=== PATIENT | female | born 1945 | race Caucasian/White ===

== ENCOUNTER 2017-04-14 16:03 | Emergency (ER) | payer MEDICARE ==
[2017-04-14 16:39] LABS: BASO % 0.5 % (0-6); EOS % 5.6 % (0-6); GRAN % 54.4 % (47-80); HEMATOCRIT 40.8 % (35.0-47.0); HEMOGLOBIN 13.8 gm/dl (11.6-16.0); LYMPH % 32.2 % (16-45); MEAN CELL VOLUME 90.7 fl (81-97); MEAN CORPUSCULAR HEMOGLOBIN 30.7 pg (27-33); MEAN CORPUSCULAR HGB CONC 33.8 g/dl (32-36); MEAN PLATELET VOLUME 10.2 fl (7.4-10.4); MONO % 7.3 % (0-9); PLATELET COUNT 215 K/uL (130-400); RED CELL DISTRIBUTION WIDTH 12.9 % (11.5-14.5); WHITE BLOOD COUNT W/O DIFF 6.3 K/uL (4.2-12.2)
[2017-04-14 16:53] LABS: BLOOD UREA NITROGEN 14 mg/dL (8-23); CREATININE 0.8 mg/dL (0.5-0.9); EST GLOMERULAR FILTRATION RATE > 60 mL/min
[2017-04-14 16:56] LABS: GLUCOSE,RANDOM 133 mg/dL (74-109)
--- NOTE | 2017-04-14 18:23 | Emergency Department Record ---
History of Present Illness - General Chief complaint: Extremity Problem Stated complaint: TINGLING IN ARM Time Seen by Provider: 04/14/17 17:19 Source: Patient Mode of Arrival: Ambulatory Limitations: No limitations - History of Present Illness Initial comments: pt brought over from [facility] for tingling in her l arm and first 3 fingers with some discomfort in her neck MD Complaint: Extremity pain Onset/Timin -: Week(s) Location: Left, Arm History of Same: No Quality: Other Consistency: Intermittent Improves with: Nothing Worsens with: Nothing Associated Symptoms: Denies other symptoms - Related Data Home Medications Medication Instructions Recorded Confirmed Last Taken Cyclobenzaprine HCl [Flexeril] 5 mg PO TID PRN 04/14/17 04/14/17 Unknown Allergies Allergy/AdvReac Type Severity Reaction Status Date / Time latex Allergy Intermediate RASH Verified 04/14/17 16:06 Travel Screening - Travel/Exposure Within Last 30 Days Have you traveled within the last 30 days?: No - Travel/Exposure Within Last Year Have you traveled outside the [place] in the last year?: No - Additonal Travel Details Have you been exposed to anyone with a communicable illness?: No - Travel Symptoms Symptom Screening: None Review of Systems Reviewed: No additional complaints except as noted below Constitutional: Reports: As per HPI. Denies: Chills, Fever, Malaise, Night sweats, Weakness, Weight change Eyes: Reports: As per HPI. Denies: Eye discharge, Eye pain, Photophobia, Vision change ENT: Reports: As per HPI. Denies: Congestion, Dental pain, Ear pain, Epistaxis , Hearing loss, Throat pain Respiratory: Reports: As per HPI. Denies: Cough, Dyspnea, Hemoptysis, Stridor, Wheezes Cardiovascular: Reports: As per HPI. Denies: Arrhythmia, Chest pain, Dyspnea on exertion, Edema, Murmurs, Orthopnea, Palpitations, Paroxysmal nocturnal dyspnea, Rheumatic Fever, Syncope Endocrine: Reports: As per HPI. Denies: Fatigue, Heat or cold intolerance, Polydipsia, Polyuria Gastrointestinal: Reports: As per HPI. Denies: Abdominal pain, Constipation, Diarrhea, Hematemesis, Hematochezia, Melena, Nausea, Vomiting Genitourinary: Reports: As per HPI. Denies: Abnormal menses, Discharge, Dyspareunia, Dysuria, Frequency, Hematuria, Incontinence, Retention, Urgency Musculoskeletal: Reports: As per HPI. Denies: Arthralgia, Back pain, Gout, Joint swelling, Myalgia, Neck pain Skin: Reports: As per HPI. Denies: Bruising, Change in color, Change in hair/ nails, Lesions, Pruritus, Rash Neurological: Reports: As per HPI. Denies: Abnormal gait, Confusion, Headache, Numbness, Paresthesias, Seizure, Tingling, Tremors, Vertigo, Weakness Psychiatric: Reports: As per HPI. Denies: Anxiety, Auditory hallucinations, Depression, Homicidal thoughts, Suicidal thoughts, Visual hallucinations Hematological/Lymphatic: Reports: As per HPI. Denies: Anemia, Blood Clots, Easy bleeding, Easy bruising, Swollen glands Past Medical History - SOCIAL HISTORY Smoking Status: Never smoker Alcohol Use: None Drug Use: None - RESPIRATORY Hx Respiratory Disorders: No - CARDIOVASCULAR Hx Cardio Disorders: Yes Comment:: cholesterol - NEURO Hx Neuro Disorders: No - GI Hx GI Disorders: No - Hx Genitourinary Disorders: No - ENDOCRINE Hx Endocrine Disorders: No - MUSCULOSKELETAL Hx Musculoskeletal Disorders: Yes Hx Arthritis: Yes - PSYCH Hx Psych Problems: Yes Comment:: insomnia - HEMATOLOGY/ONCOLOGY Hx Hematology/Oncology Disorders: No Family Medical History Any Significant Family History?: No Physical Exam - General General Appearance: Alert, Oriented x3, Cooperative, No acute distress - Head Head exam: Normal inspection - Eye Eye exam: Normal appearance, PERRL, EOMI Pupils: Normal accommodation - ENT ENT exam: Normal exam, Mucous membranes moist, Normal external ear exam, Normal orophraynx Ear exam: Normal external inspection. negative: External canal tenderness Nasal Exam: Normal inspection. negative: Discharge, Sinus tenderness Mouth exam: Normal external inspection, Tongue normal Teeth exam: Normal inspection. negative: Dental caries Throat exam: Normal inspection. negative: Tonsillar erythema, Tonsillar exudate - Neck Neck exam: Normal inspection, Full ROM, Tenderness - Respiratory Respiratory exam: Normal lung sounds bilaterally. negative: Respiratory distress - Cardiovascular Cardiovascular Exam: Regular rate, Normal rhythm, Normal heart sounds - GI/Abdominal GI/Abdominal exam: Soft, Normal bowel sounds. negative: Tenderness - Rectal Rectal exam: Deferred - exam: Deferred - Extremities Extremities exam: Normal inspection, Full ROM, Normal capillary refill. negative: Tenderness - Back Back exam: Reports: Normal inspection, Full ROM. Denies: Muscle spasm, Rash noted, Tenderness - Neurological Neurological exam: Alert, CN II-XII intact, Normal gait, Oriented X3, Other ( tingling in 1st 3 fingers) - Psychiatric Psychiatric exam: Normal affect, Normal mood - Skin Skin exam: Dry, Intact, Normal color, Warm Course Vital Signs 04/14/17 16:13 Temperature 97.9 F Pulse Rate 65 Respiratory 18 Rate Blood Pressure 131/91 Pulse Ox 95 Medical Decision Making - Lab Data Result diagrams: 04/14/17 16:30 04/14/17 16:30 Lab Results 04/14/17 04/14/17 Range/Units 16:30 16:30 WBC 6.3 (4.2-12.2) K/uL RBC 4.50 (3.80-5.40) M/uL Hgb 13.8 (11.6-16.0) gm/dl Hct 40.8 (35.0-47.0) % MCV 90.7 (81-97) fl MCH 30.7 (27-33) pg MCHC 33.8 (32-36) g/dl RDW 12.9 (11.5-14.5) % Plt Count 215 (130-400) K/uL MPV 10.2 (7.4-10.4) fl Gran % 54.4 (47-80) % Lymphocytes % 32.2 (16-45) % Monocytes % 7.3 (0-9) % Eosinophils % 5.6 (0-6) % Basophils % 0.5 (0-6) % Sodium 141 (136-145) mmol/L Potassium 3.7 (3.4-4.5) mmol/L Chloride 104 (98-107) mmol/L Carbon Dioxide 24.0 (22-29) mmol/L Anion Gap 13.0 (7-16) BUN 14 (8-23) mg/dL Creatinine 0.8 (0.5-0.9) mg/dL Estimated GFR > 60 mL/min Random Glucose 133 H (74-109) mg/dL Calcium 9.7 (8.8-10.2) mg/dL Troponin T < 0.010 (0-0.010) ng/mL Disposition Disposition: Discharge Clinical Impression: Cervical radiculopathy Disposition: Home, Self-Care Condition: (1) Good Instructions: Cervical Radiculopathy (ED) Additional Instructions: follow up with family doctor tomorrow. return sooner if worse. Quality - Quality Measures Quality Measures: N/A - Blood Pressure Screening Does Patient Have Any of the Following: No Blood Pressure Classification: Hypertensive Reading Systolic Measurement: 131 Diastolic Measurement: 91 Screening for High Blood Pressure: < Pre-Hypertensive BP, F/U Documented > [ [id number]] Pre-Hypertensive Follow-up Interventions: Follow-up with rescreen every year.
--- NOTE | 2017-04-15 08:47 | CT SCAN REPORT ---
EXAM: CT OF THE BRAIN WITHOUT CONTRAST HISTORY: NUMBNESS AND TINGLING. TECHNIQUE: Sequential axial images were obtained from the foramen magnum to the vertex without contrast administration. FINDINGS: The brain volume is normal. No large territorial infarct, hemorrhage , mass effect, or midline shift. No extraaxial fluid collection. The orbits, paranasal sinuses, and mastoid air cells are normal. IMPRESSION: NO ACUTE INTRACRANIAL ABNORMALITY IS APPRECIATED. JOB NUMBER: [id number] [facility]
--- NOTE | 2017-04-15 08:49 | CT SCAN REPORT ---
EXAM: CT OF THE CERVICAL SPINE WITHOUT CONTRAST HISTORY: INJURY. TECHNIQUE: Sequential axial images were obtained through the cervical spine without intravenous contrast administration. Sagittal and coronal reformatted images were performed. FINDINGS: There is mild multilevel degenerative change. No evidence of fracture, subluxation or perched fact. The lateral masses are well aligned. The prevertebral soft tissues are normal. IMPRESSION: MILD MULTILEVEL DEGENERATIVE CHANGE. NO EVIDENCE OF FRACTURE, SUBLUXATION, OR PERCHED FACET. JOB NUMBER: [id number] [facility]
== END 2017-04-14 18:30 | disposition home or self-care (01) ==
LOC: ER 16:03
DX: M54.12 Radiculopathy, cervical region (principal)
CPT/HCPCS: 70450; 72125; 80048; 84484; 85025; 93005; 93010; 99284

== ENCOUNTER 2019-02-21 10:16 | Day surgery (SDC) | payer MEDICARE ==
[~2019-02-21 10:16] MED LIST: ACETAMINOPHEN 1,000 MG/100 ML BTL IVPB ONE; CEFAZOLIN 2 Gram 2 GM/50 ML BAG IVPB ONE; FAMOTIDINE 20MG TABLET PO ONE; METOCLOPRAMIDE 10 MG TABLET PO ONE; SCOPOLAMINE 1 PATCH TDSY TD ONE
[2019-02-21] MEDS ORDERED: DEXAMETHASONE 4 MG/ML 1ML VIAL IVP ONE (10:17)
[2019-02-21] MEDS ORDERED: DESFLURANE 240 ML BTL INH ONE (10:17)
[2019-02-21] MEDS ORDERED: MIDAZOLAM HCL 2MG/2ML VIAL IV ONE (10:17)
[2019-02-21] MEDS ORDERED: ONDANSETRON HCL IV 4 MG/2 ML VIAL IVP ONE (10:17)
[2019-02-21] MEDS ORDERED: FENTANYL PF 100MCG/2ML VIAL IV ONE (10:17)
[2019-02-21] MEDS ORDERED: LIDOCAINE 2% MDV (20MG/ML) 20ML VIAL IV ONE (10:17)
[2019-02-21] MEDS ORDERED: PROPOFOL 10 MG/ML VIAL IV ONE (10:17)
[2019-02-21] MEDS ORDERED: RINGERS SOLUTION,LACTATED 1,000 ML IV ONE (11:06)
[2019-02-21] MEDS ORDERED: METHYLPREDNISOLONE 80MG/VIAL IM ONE (12:49)
[2019-02-21] MEDS ORDERED: METHYLPREDNISOLONE 40MG/VIAL IU ONE (12:49)
[2019-02-21] MEDS ORDERED: BUPIVACAINE 0.25% W/EPI MPF 30ML VIAL SQ ONE (12:49)
[2019-02-21] MEDS ORDERED: BUPIVACAINE 0.5% W/EPI MPF 30 ML VIAL SQ ONE (12:49)
[2019-02-21] MEDS ORDERED: BUPIVACAINE LIPOSOME/PF 133MG/10ML VIAL IU ONE (12:50)
[2019-02-21] MEDS ORDERED: BUPIVACAINE LIPOSOME/PF 133MG/10ML VIAL SQ ONE (12:50)
--- NOTE | 2019-02-22 07:23 | Operative Note ---
DATE OF SURGERY: 02/21/2019 PREOPERATIVE DIAGNOSIS: RIGHT KNEE ARTHROSIS. POSTOPERATIVE DIAGNOSIS: RIGHT KNEE ARTHROSIS. OPERATION: 1. DIAGNOSTIC ARTHROSCOPY. 2. ARTHROSCOPIC CHONDROPLASTY OF THE MEDIAL FEMORAL CONDYLE. 3. ARTHROSCOPIC DEBRIDEMENT OF DEGENERATIVE TEAR OF THE MIDDLE HORN OF THE LATERAL MENISCUS. SURGEON: Uday Blackwood M.D. ANESTHESIA: LMA. ANESTHESIA PROVIDER: ELIZ Bright CRNA COMPLICATIONS: None. ESTIMATED BLOOD LOSS: Minimal. OPERATIVE FINDINGS: Grade 3 chondromalacia of the coarse cartilage fragments in the medial femoral condyle, degenerative tear in the lateral meniscus middle horn and inflammation synovitis throughout. INDICATIONS: This is a 73-year-old female who has had persistent pain and dysfunction in the knee for several months. Mechanical symptoms snapping, catching as well as achy pain. She has failed antiinflammatory injection and therapy and she was scheduled for arthroscopic surgery at this point. She did not have any [id number] arthrosis. She did not require a knee replacement at this point. I explained the risks and benefits in detail for the diagnosis and procedure including, but not limited to infection, nerve injury, vessel injury, persistent pain, stiffness, numbness and tingling of the knee, the fact that she has arthrosis of the knee and that this procedure will not cure that condition, she could require even further procedures, and all of her questions were answered, rehab course was outlined and she agreed to proceed. PROCEDURE: The patient was brought to the Operating Room, placed in the supine position, prepped for surgery. LMA was induced and her right lower extremity and knee were prepped and draped in sterile fashion. The right knee was prepped again with ChloraPrep after it was draped. Intraoperative timeout was performed. Next preoperative knee exam revealed full knee range of motion. No knee instability. Next we injected the knee with 0.5% Marcaine with epi. Standard superolateral portals established. Interomedial and lateral portals established. Diagnostic arthroscopy performed. The suprapatellar pouch had some synovitis, otherwise normal. The medial gutter again had synovitis, otherwise normal. The medial compartment revealed coarse cartilage where on the medial femoral condyle Grade 3, medially inserted a shaver there and smoothed the cartilage surface to as smooth a surface as possible. The tibial surface was Grade 1 chondromalacia ulna. The meniscus here is probed entirely and was normal. The intercondylar notch was thoroughly inspected. The ACL and PCL are intact. The lateral compartment revealed some degenerative tearing of the middle horn of the meniscus, this was lightly debrided with a shaver, otherwise the cartilage here is normal. The remainder of the meniscus was normal and probed thoroughly in its entirety. The lateral gutter was normal. The patellofemoral compartment had some mild Grade 1 chondromalacia only, otherwise normal. This completed our procedures. The scope and curtain was removed and the knee was bolused with 0.5% Marcaine with epi and 80 mg of Depo-Medrol and we injected Exparel around the periphery of the incisions with several sticks of that. The patient tolerated the procedure well. No intraoperative complications. All sponge, needle, and blade counts were correct. Recovery stable and intact. Sterile dressing applied with El wrap. Discharge to outpatient follow-up in two weeks. JOB NUMBER: [id number] [facility]
== END 2019-02-21 13:47 | disposition home or self-care (01) ==
LOC: SUR 10:16
PROVIDERS: ATTEND Orthopaedic Surgery
DX: S83.281A Other tear of lateral meniscus, current injury, right knee, initial encounter (principal); I10 Essential (primary) hypertension; E78.00 Pure hypercholesterolemia, unspecified
CPT/HCPCS: C9290; J1030; J1040; J2405; J7120